=== PATIENT | female | born 1980 | race Caucasian/White ===

== ENCOUNTER 2024-10-01 16:14 | Outpatient (CLI) | payer OTHER, SELFPAY | END 2024-10-01 16:15 | disposition home or self-care (01) | PROVIDERS: PCP Family Medicine; Visit Provider Family Medicine | DX: F41.1 Generalized anxiety disorder (principal); E66.09 Other obesity due to excess calories; R53.83 Other fatigue | CPT/HCPCS: 80048; 80061; 84443; 85025 ==